=== PATIENT | female | born 1975 | race Caucasian/White ===

== ENCOUNTER → 2020-02-16 14:34 | Outpatient (BNVA) | payer OTHER, SELFPAY | PROVIDERS: Family Provider Family Medicine; PCP Family Medicine; Visit Provider Nurse Practitioner Family | DX: R05 Cough (principal); R09.81 Nasal congestion; R50.9 Fever, unspecified; R53.83 Other fatigue; R53.81 Other malaise; Z20.828 Contact with and (suspected) exposure to other viral communicable diseases | CPT/HCPCS: 87635 ==

== ENCOUNTER → 2021-07-27 16:49 | Outpatient (BNVA) | payer OTHER, SELFPAY | PROVIDERS: Family Provider Family Medicine; PCP Family Medicine; Visit Provider Nurse Practitioner Family | DX: Z20.828 Contact with and (suspected) exposure to other viral communicable diseases (principal); Z20.822 Contact with and (suspected) exposure to COVID-19 | CPT/HCPCS: 87635 ==

== ENCOUNTER 2022-12-10 10:21 | Emergency (ER) | payer MEDICAID, SELFPAY ==
[2022-12-10 10:57] VITALS: PULSE 137; RESP 16; TEMP 36.8; O2SAT 96; BMI 18.8
--- NOTE | 2022-12-10 13:13 | ED_ITS ---
Documented by User: KATHY Calhoun 12/10/22 16:19 HPI - Neck Pain/Injury General: Chief Complaint: Neck Pain/Injury Stated Complaint: NECK & BACK PAIN Time Seen by Provider: 12/10/22 12:47 Source: patient Mode of arrival: EMS Limitations: no limitations History of Present Illness: Patient is a 47-year-old female presents to ED today with a complaint of neck pain and bilateral shoulder pain. Patient provides history that at some point approximately a week ago she was outside feeding her dogs and states she got multiple thorns stuck in her neck. These were removed by herself and with tweezers. She states the following morning she began having neck pain. She is reporting diffuse neck pain and feels like the right side of her neck is swollen. Pain seems to be worse with any form of palpation and movement of her neck. She has not noticed any fevers. Reports previous IV drug use with last use being 10 years ago. MD complaint: neck pain Onset (ago): day(s) Place: home Radiation: right lateral, right shoulder and left shoulder Severity: severe and constant Severity scale (1-10): 10 Duration: constant Relieving factors: none Exacerbating factors: movement of extremity and movement of neck Associated symptoms: Reports no associated symptoms; Denies headache(s) or nausea Treatments prior to arrival: none Review of Systems Const: Denies: fever(s), chills, body aches, fatigue or malaise ENMT: Denies: throat pain, odynophagia or hoarseness Card: Denies: chest pain Resp: Denies: dyspnea GI: Denies: nausea or vomiting Musc: Reports: neck pain and joint pain (bilateral shoulder pain); Denies: back pain, extremity pain, extremity swelling, joint swelling, joint redness or joint warmth Neuro: Reports: sensory changes (bilateral UEs); Denies: headache(s) or weakness in extremities Physical Exam Const: COMMON NORMALS: patient oriented x3, no limitations, alert and well nourished GENERAL APPEARANCE: cooperative, in distress (in pain/discomfort) and disheveled ORIENTATION/CONSCIOUSNESS: Yes awake, Yes oriented to person, Yes oriented to place and Yes oriented to time Neck/C-Spine: GENERAL: Yes tender and Yes other (significant R posterior neck swelling) CERVICAL SPINE: Yes pain with cervical ROM NECK IMAGES: 1. diffuse swelling/edema to R posterior neck without underlying fluctuance to suggest abscess; denies midline tenderness; virtually no ROM of neck secondary to pain Resp: COMMON NORMALS: normal respiratory effort and clear to auscultation bilaterally AUSCULTATION: clear to auscultation bilaterally Cardio: COMMON NORMALS: regular rhythm RATE: tachycardic RHYTHM: regular rhythm Back/Pelvis: COMMON NORMALS: thoracic and lumbar spine normal to inspection, no thoracic nor lumbar tenderness and thoraco-lumbar ROM normal Extremity: COMMON NORMALS: normal to inspection, full ROM, capillary refill normal, no joint enlargement and no clubbing, cyanosis or edema NARRATIVE EXTREMITY EXAM: pain in neck with ROM of shoulders GENERAL: Yes normal exam except as noted Neuro: COMMON NORMALS: patient oriented x3 SENSORIUM/ORIENTATION: Yes alert, Yes oriented to person, Yes oriented to place and Yes oriented to time Course Consultations: Consultation #1: AMEENA Ham with Dr. Lacy admitting hospitalist at [facility] will be accepting patient as direct transfer Vital Signs: Vital signs: Vital Signs Temperature 98.2 F 12/10/22 10:57 Pulse Rate 137 H 12/10/22 10:57 Respiratory Rate 16 12/10/22 10:57 Pulse Oximetry 96 12/10/22 10:57 Oxygen Delivery Me thod Room Air 12/10/22 10:57 MDM - Neck Pain/Injury Medical Decision Making Patient has a very large multiseptated abscess involving the right posterior cervical space with extension into her cervical epidural spaces from C4-C7. Patient is tachycardic upon arrival. White count of 12.8. ESR is 103 with a CRP of 198. I have spoken to hospitalist at [facility] who will accept patient as a direct transfer. Will consult with neurosurgery/infectious disease upon arrival. Spoke to Dr. Mace who is aware of patient and agrees with transfer plan. Lab Data 12/10/22 13:30 12/10/22 13:[address] 12/10/22 13:19 IMPRESSION: 1. Lobulated large peripherally enhancing abscess in the posterior cervical space centered in the RIGHT paraspinal musculature about the right-sided facets at C3-C6. 2. Associated extension into the epidural space eccentric to the RIGHT and posteriorly with moderate central canal stenosis at C5 and C6. 3. Associated diffuse epidural enhancement with involvement of the RIGHT greater than LEFT neural foramen. 4. Disc space narrowing worse at C6-C7. No definite evidence of discitis. 5. No evidence of mediastinal abscess. Small amount of fluid and edema in the prevertebral space. Notified KATHY Calhoun at 12/10/2022 3:28 PM. Laboratory Results WBC 12.8 10^3/uL (4.0-10.0) H 12/10/22 13:30 RBC 4.22 10^6/uL (4.1-5.3) 12/10/22 13:30 Hgb 12.8 g/dL (11.5-15.3) 12/10/22 13:30 Hct 38.7 % (37.0-47.0) 12/10/22 13:30 MCV 91.7 fl (81-99) 12/10/22 13:30 MCH 30.3 pg (28.0-34.0) 12/10/22 13:30 MCHC 33.1 g/dL (30.0-36.0) 12/10/22 13:30 RDW 14.0 % (12.1-15.1) 12/10/22 13:30 Plt Count 265 10^3/cmm (130-400) 12/10/22 13:30 MPV 9.3 fL (7.4-10.4) 12/10/22 13:30 Neut % (Auto) 74.1 % 12/10/22 13:30 Lymph % (Auto) 14.3 % 12/10/22 13:30 Haralson % (Auto) 9.2 % 12/10/22 13:30 Eos % (Auto) 0.2 % 12/10/22 13:30 Baso % (Auto) 0.5 % 12/10/22 13:30 Neut # (Auto) 9.47 10^3/uL (1.8-7.7) H 12/10/22 13:30 Lymph # (Auto) 1.8 10^3/uL (0.8-4.8) 12/10/22 13:30 Haralson # (Auto) 1.2 10^3/uL (0.2-0.9) H 12/10/22 13:30 Eos # (Auto) 0.0 10^3/uL (0.0-0.8) 12/10/22 13:30 Baso # (Auto) 0.1 10^3/uL (0.0-0.1) 12/10/22 13:30 Nucleated RBC % (auto) 0 % 12/10/22 13:30 Nucleated RBCs # 0.0 /100WBC 12/10/22 13:30 ESR 103 mm/hr (0-15) H 12/10/22 13:30 Sodium 134 mmol/L (136-145) L 12/10/22 13:30 Potassium 3.7 mmol/L (3.5-5.1) 12/10/22 13:30 Chloride 98 mmol/L (98-107) 12/10/22 13:30 Carbon Dioxide 24 mmol/L (22-29) 12/10/22 13:30 Anion Gap 15.7 (5-19) 12/10/22 13:30 BUN 14 mg/dL (6-20) 12/10/22 13:30 Creatinine 0.9 mg/dL (0.5-0.9) 12/10/22 13:30 GFR Calculation 67.7 mL/min (90-130) L 12/10/22 13:30 Glucose 94 mg/dL (65-115) 12/10/22 13:30 Calculated Osmolality 278 mOsm/kg (285-295) L 12/10/22 13:30 Lactic Acid 1.2 mmol/L (0.5-2.2) 12/10/22 13:30 Calcium 8.6 mg/dL (8.5-10.5) 12/10/22 13:30 Total Bilirubin 0.5 mg/dL (0.15-1.2) 12/10/22 13:30 AST 46 U/L (0-32) H 12/10/22 13:30 ALT 108 U/L (0-33) H 12/10/22 13:30 Alkaline Phosphatase 501 U/L (35-105) H 12/10/22 13:30 C-Reactive Protein 196.6 mg/L (0.0-4.9) H 12/10/22 13:30 Total Protein 7.0 g/dL (6.6-8.7) 12/10/22 13:30 Albumin 3.1 g/dL (3.5-5.2) L 12/10/22 13:30 Globulin 3.9 g/dL (1.3-4.6) 12/10/22 13:30 Hepatitis A IgM Ab Non-reactive (Nonreactive) 12/10/22 13:30 Hep Bs Antigen Non-reactive (Nonreactive) 12/10/22 13:30 Hep B Core IgM Ab Non-reactive (Nonreactive) 12/10/22 13:30 Hepatitis C Antibody Non-reactive (Nonreactive) 12/10/22 13:30 Discharge Plan Discharge Patient Disposition: Xfer Short-Term Hosp Clinical Impression: Abscess in epidural space of cervical spine, Abscess of neck Condition: Stable Referrals: Gage Burt DO [Primary Care Provider] - Coding Level of Care Code ED Station Mechanic Helper for Chg Fwd Documented by User: Fredo Mace DO 12/10/22 16:35 HPI - Neck Pain/Injury General: Chief Complaint: Neck Pain/Injury Stated Complaint: NECK & BACK PAIN Time Seen by Provider: 12/10/22 12:47 Physical Exam Neck/C-Spine: NECK IMAGES: 1. diffuse swelling/edema to R posterior neck without underlying fluctuance to suggest abscess; denies midline tenderness; virtually no ROM of neck secondary to pain Course Vital Signs: Vital signs: Vital Signs Temperature 98.2 F 12/10/22 10:57 Pulse Rate 137 H 12/10/22 10:57 Respiratory Rate 16 12/10/22 10:57 Pulse Oximetry 96 12/10/22 10:57 Oxygen Delivery Me thod Room Air 12/10/22 10:57 MDM - Neck Pain/Injury Medical Decision Making Patient has a very large multiseptated abscess involving the right posterior ce rvical space with extension into her cervical epidural spaces from C4-C7. Patient is tachycardic upon arrival. White count of 12.8. ESR is 103 with a CRP of 198. I have spoken to hospitalist at [facility] who will accept patient as a direct transfer. Will consult with neurosurgery/infectious disease upon arrival. Spoke to Dr. Mace who is aware of patient and agrees with transfer plan. Chart reviewed and patient discussed with midlevel. Agree with assessment and plan. Lab Data 12/10/22 13:30 12/10/22 13:[address] 12/10/22 13:19 IMPRESSION: 1. Lobulated large peripherally enhancing abscess in the posterior cervical space centered in the RIGHT paraspinal musculature about the right-sided facets at C3-C6. 2. Associated extension into the epidural space eccentric to the RIGHT and posteriorly with moderate central canal stenosis at C5 and C6. 3. Associated diffuse epidural enhancement with involvement of the RIGHT greater than LEFT neural foramen. 4. Disc space narrowing worse at C6-C7. No definite evidence of discitis. 5. No evidence of mediastinal abscess. Small amount of fluid and edema in the prevertebral space. Notified KATHY Calhoun at 12/10/2022 3:28 PM. Laboratory Results WBC 12.8 10^3/uL (4.0-10.0) H 12/10/22 13:30 RBC 4.22 10^6/uL (4.1-5.3) 12/10/22 13:30 Hgb 12.8 g/dL (11.5-15.3) 12/10/22 13:30 Hct 38.7 % (37.0-47.0) 12/10/22 13:30 MCV 91.7 fl (81-99) 12/10/22 13:30 MCH 30.3 pg (28.0-34.0) 12/10/22 13:30 MCHC 33.1 g/dL (30.0-36.0) 12/10/22 13:30 RDW 14.0 % (12.1-15.1) 12/10/22 13:30 Plt Count 265 10^3/cmm (130-400) 12/10/22 13:30 MPV 9.3 fL (7.4-10.4) 12/10/22 13:30 Neut % (Auto) 74.1 % 12/10/22 13:30 Lymph % (Auto) 14.3 % 12/10/22 13:30 Haralson % (Auto) 9.2 % 12/10/22 13:30 Eos % (Auto) 0.2 % 12/10/22 13:30 Baso % (Auto) 0.5 % 12/10/22 13:30 Neut # (Auto) 9.47 10^3/uL (1.8-7.7) H 12/10/22 13:30 Lymph # (Auto) 1.8 10^3/uL (0.8-4.8) 12/10/22 13:30 Haralson # (Auto) 1.2 10^3/uL (0.2-0.9) H 12/10/22 13:30 Eos # (Auto) 0.0 10^3/uL (0.0-0.8) 12/10/22 13:30 Baso # (Auto) 0.1 10^3/uL (0.0-0.1) 12/10/22 13:30 Nucleated RBC % (auto) 0 % 12/10/22 13:30 Nucleated RBCs # 0.0 /100WBC 12/10/22 13:30 ESR 103 mm/hr (0-15) H 12/10/22 13:30 Sodium 134 mmol/L (136-145) L 12/10/22 13:30 Potassium 3.7 mmol/L (3.5-5.1) 12/10/22 13:30 Chloride 98 mmol/L (98-107) 12/10/22 13:30 Carbon Dioxide 24 mmol/L (22-29) 12/10/22 13:30 Anion Gap 15.7 (5-19) 12/10/22 13:30 BUN 14 mg/dL (6-20) 12/10/22 13:30 Creatinine 0.9 mg/dL (0.5-0.9) 12/10/22 13:30 GFR Calculation 67.7 mL/min (90-130) L 12/10/22 13:30 Glucose 94 mg/dL (65-115) 12/10/22 13:30 Calculated Osmolality 278 mOsm/kg (285-295) L 12/10/22 13:30 Lactic Acid 1.2 mmol/L (0.5-2.2) 12/10/22 13:30 Calcium 8.6 mg/dL (8.5-10.5) 12/10/22 13:30 Total Bilirubin 0.5 mg/dL (0.15-1.2) 12/10/22 13:30 AST 46 U/L (0-32) H 12/10/22 13:30 ALT 108 U/L (0-33) H 12/10/22 13:30 Alkaline Phosphatase 501 U/L (35-105) H 12/10/22 13:30 C-Reactive Protein 196.6 mg/L (0.0-4.9) H 12/10/22 13:30 Total Protein 7.0 g/dL (6.6-8.7) 12/10/22 13:30 Albumin 3.1 g/dL (3.5-5.2) L 12/10/22 13:30 Globulin 3.9 g/dL (1.3-4.6) 12/10/22 13:30 Hepatitis A IgM Ab Non-reactive (Nonreactive) 12/10/22 13:30 Hep Bs Antigen Non-reactive (Nonreactive) 12/10/22 13:30 Hep B Core IgM Ab Non-reactive (Nonreactive) 12/10/22 13:30 Hepatitis C Antibody Non-reactive (Nonreactive) 12/10/22 13:30 Discharge Plan Discharge Patient Disposition: Xfer Short-Term Hosp Clinical Impression: Abscess in epidural space of cervical spine, Abscess of neck Condition: Stable Referrals: Gage Burt DO [Primary Care Provider] - Coding Level of Care Code ED Station Mechanic Helper for Windy Armas
--- NOTE | 2022-12-10 13:19 | CT_ITS ---
WS: [id number] CT NECK TECHNIQUE: Contrast-enhanced CT of the neck with coronal and sagittal reformatted images. CLINICAL INFORMATION: severe neck pain; R posterior neck pain/swelling COMPARISON: None. DLP: 148.[address] scans at [facility] [place] use at least one of these dose optimization techniques: automated e xposure control; mA and/or kV adjustment per patient size (includes targeted exams where dose is matc hed to clinical indication); or iterative reconstruction. FINDINGS: Large lobulated multiseptated peripherally enhancing abscess involving the RIGHT posterior cervical space. This involves the paraspinal musculature extending into the cervical epidural space extending from C4 through C7. Epidural abscess worse at the C5 and C6 levels with moderate central canal stenos is with anterior LEFT flattening of the cervical cord. Epidural abscess eccentric to the RIGHT extend ing posteriorly with diffuse epidural enhancement. Abscess extends inferiorly to approximately T1 lev el. Irregular lobulated paravertebral abscess measures approximately 3.9 x 5.8 x 7.1 cm AP by transverse by craniocaudal. Paravertebral abscess extends into the interspinous musculature posteriorly and into the epidural space described above. Extension into the RIGHT neural foramen at C4-C7. Prevertebral soft tissue edema. Trace fluid in the prevertebral s pace. No evidence of mediastinal abscess. Inflammatory changes extend into the RIGHT lower neck and s upraclavicular soft tissues Thyroid gland appears normal. Lung apices are well aerated. Mastoid air cells are well aerated. Fernanda l posterior nasopharynx. Normal parapharyngeal fat. Disc space narrowing worse at C6-C7 with reversal of the normal cervical lordosis. Asymmetric advance d facet arthropathy C4-C6. No definite evidence of discitis. This can be further evaluated with MRI. Paravertebral abscess centered about the RIGHT C3-C6 facets. CT/CT neck w con* [id number] IMPRESSION: 1. Lobulated large peripherally enhancing abscess in the posterior cervical sp elma centered in the RIGHT paraspinal musculature about the right-sided facets a t C3-C6. 2. Associated extension into the epidural space eccentric to the RIGHT and pos teriorly with moderate central canal stenosis at C5 and C6. 3. Associated diffuse epidural enhancement with involvement of the RIGHT great er than LEFT neural foramen. 4. Disc space narrowing worse at C6-C7. No definite evidence of discitis. 5. No evidence of mediastinal abscess. Small amount of fluid and edema in the prevertebral space. Notified KATHY Calhoun at 12/10/2022 3:28 PM.
[2022-12-10 13:47] LABS: Basophils # 0.1 10^3/uL (0.0-0.1); Basophils % 0.5 %; Eosinophils % 0.2 %; Hematocrit 38.7 % (37.0-47.0); Hemoglobin 12.8 g/dL (11.5-15.3); Lymphocytes # 1.8 10^3/uL (0.8-4.8); Lymphocytes % 14.3 %; Mean Corpuscular HGB Conc 33.1 g/dL (30.0-36.0); Mean Corpuscular Hemoglobin 30.3 pg (28.0-34.0); Mean Corpuscular Volume 91.7 fl (81-99); Mean Platelet Volume 9.3 fL (7.4-10.4); Monocytes # 1.2 10^3/uL (0.2-0.9); Monocytes % 9.2 %; Neutrophils # 9.47 10^3/uL (1.8-7.7); Neutrophils % 74.1 %; Nucleated Red Blood Cells % 0 %; Platelet Count 265 10^3/cmm (130-400); Red Blood Count 4.22 10^6/uL (4.1-5.3); White Blood Count 12.8 10^3/uL (4.0-10.0)
[2022-12-10 14:02] LABS: Erythrocyte Sedimentation Rate 103 mm/hr (0-15)
[2022-12-10 14:06] LABS: Alanine Aminotransferase 108 U/L (0-33); Albumin Level 3.1 g/dL (3.5-5.2); Alkaline Phosphatase 501 U/L (35-105); Anion Gap 15.7 (5-19); Aspartate Amino Transferase 46 U/L (0-32); Blood Urea Nitrogen 14 mg/dL (6-20); C Reactive Protein 196.6 mg/L (0.0-4.9); Calcium 8.6 mg/dL (8.5-10.5); Carbon Dioxide 24 mmol/L (22-29); Chloride 98 mmol/L (98-107); Globulin 3.9 g/dL (1.3-4.6); Glomerular Filtration Rate 67.7 mL/min (90-130); Glucose 94 mg/dL (65-115); Osmolality Calculated 278 mOsm/kg (285-295); Potassium 3.7 mmol/L (3.5-5.1); Sodium 134 mmol/L (136-145); Total Bilirubin 0.5 mg/dL (0.15-1.2)
[2022-12-10 14:19] LABS: Lactic Sepsis W/Reflex 1.2 mmol/L (0.5-2.2)
[2022-12-10] MEDS: morphine 4 mg/mL SDV 1 mL IVP (14:42)
[2022-12-10 14:59] LABS: Hepatitis A Antibody IgM Non-Reactive (Nonreactive); Hepatitis B Core IgM Non-Reactive (Nonreactive); Hepatitis B Surface Antigen Non-Reactive (Nonreactive); Hepatitis C Virus Antibody Non-Reactive (Nonreactive)
[2022-12-10] MEDS: iohexol 350 mg/mL 500 mL Btl (per mL) IV (15:01)
[2022-12-10] MEDS: sodium chloride 0.9% 1,000 ML 999 ML IV (16:42)
[2022-12-10] MEDS: cefTRIAXone 2,000 MG in sodium chloride 0.9% (plus) 50 ML 100 MG IV (16:42)
[2022-12-10] MEDS: vancomycin 1,000 MG in sodium chloride 0.9% 250 ML 250 MG IV (17:42)
[2022-12-10 18:15] VITALS: BP 131/79; PULSE 120; O2SAT 99
[2022-12-10 18:53] LABS: Amphetamines Screen Urine Positive (Negative); Barbiturates Screen Urine Negative (Negative); Benzodiazepines Screen Urine Negative (Negative); Cocaine Screen Urine Negative (Negative); Opiate Screen Urine Positive (Negative); PCP Screen Urine Negative (Negative); THC Screen Urine Positive (Negative)
--- NOTE | 2022-12-10 18:57 | PC.NURSE ---
ASSUMED CARE AROUND [id number].
[2022-12-10 19:08] VITALS: RESP 16; O2SAT 100
[2022-12-10] MEDS: HYDROmorphone 1 mg/mL INJ 1 mL IVP (19:08)
[2022-12-10 19:12] VITALS: BP 131/79; PULSE 116; RESP 18; O2SAT 96
[2022-12-10 23:56] VITALS: BP 120/73; PULSE 121; RESP 16; O2SAT 95
[2022-12-11] VITALS (11 sets, daily range): BP systolic 97–125; BP diastolic 64–86; PULSE 101–129; RESP 14–18; O2SAT 94–100
[2022-12-11] MEDS: HYDROmorphone 1 mg/mL INJ 1 mL IVP ×2 (04:03→07:37)
--- NOTE | 2022-12-11 06:53 | PC.NURSE ---
Received report from Hermann MENENDEZ. Assuming care for patient at this time.
[2022-12-11] MEDS: sodium chloride 0.9% 1,000 ML 999 ML IV (07:38)
[2022-12-11] MEDS: nicotine 21 mg Patch 1 PATCH TRANSDERMA (07:50)
[2022-12-11 07:59] LABS: Basophils # 0.1 10^3/uL (0.0-0.1); Basophils % 0.5 %; Eosinophils # 0.1 10^3/uL (0.0-0.8); Eosinophils % 0.5 %; Hematocrit 35.3 % (37.0-47.0); Hemoglobin 11.3 g/dL (11.5-15.3); Lymphocytes # 2.3 10^3/uL (0.8-4.8); Lymphocytes % 14.6 %; Mean Corpuscular Volume 93.6 fl (81-99); Mean Platelet Volume 9.1 fL (7.4-10.4); Monocytes # 1.4 10^3/uL (0.2-0.9); Neutrophils # 11.27 10^3/uL (1.8-7.7); Neutrophils % 73.5 %; Nucleated Red Blood Cells % 0 %; Platelet Count 263 10^3/cmm (130-400); Red Blood Count 3.77 10^6/uL (4.1-5.3); Red Cell Distribution Width 14.2 % (12.1-15.1); White Blood Count 15.4 10^3/uL (4.0-10.0)
[2022-12-11 08:08] LABS: Bacillus cereus group Not Detected (NOT DETECT); Bacillus subtillis group Not Detected (NOT DETECT); Corynebacterium Not Detected (NOT DETECT); Cutibacterium acnes (P.acnes) Not Detected (NOT DETECT); Enterococcus Not Detected (NOT DETECT); Enterococcus faecalis Not Detected (NOT DETECT); Enterococcus faecium Not Detected (NOT DETECT); Lactobacillus species Not Detected (NOT DETECT); Listeria Not Detected (NOT DETECT); Listeria monocytogenes Not Detected (NOT DETECT); Micrococcus Not Detected (NOT DETECT); Pan Candida Not Detected (NOT DETECT); Pan Gram-Negative Not Detected (NOT DETECT); Staphylococcus epidermidis Not Detected (NOT DETECT); Staphylococcus lugdunensis Not Detected (NOT DETECT); Staphylococcus species Detected (NOT DETECT); Streptococcus agalactiae Not Detected (NOT DETECT); Streptococcus anginosus group Not Detected (NOT DETECT); Streptococcus pneumoniae Not Detected (NOT DETECT); Streptococcus pyogenes Not Detected (NOT DETECT); Streptococcus species Not Detected (NOT DETECT); mecA Detected (NOT DETECT); mecC Not Detected (NOT DETECT)
[2022-12-11 08:26] LABS: Alanine Aminotransferase 66 U/L (0-33); Albumin Level 2.4 g/dL (3.5-5.2); Alkaline Phosphatase 602 U/L (35-105); Anion Gap 15.7 (5-19); Aspartate Amino Transferase 23 U/L (0-32); Blood Urea Nitrogen 10 mg/dL (6-20); Calcium 8.1 mg/dL (8.5-10.5); Carbon Dioxide 22 mmol/L (22-29); Chloride 100 mmol/L (98-107); Globulin 3.5 g/dL (1.3-4.6); Glomerular Filtration Rate 90.5 mL/min (90-130); Glucose 82 mg/dL (65-115); Osmolality Calculated 276 mOsm/kg (285-295); Potassium 3.7 mmol/L (3.5-5.1); Sodium 134 mmol/L (136-145); Total Bilirubin 0.5 mg/dL (0.15-1.2); Total Protein 5.9 g/dL (6.6-8.7)
[2022-12-11 08:32] LABS: Lactic Sepsis W/Reflex 0.9 mmol/L (0.5-2.2)
== END 2022-12-11 09:53 | disposition short-term general hospital (02) ==
PROVIDERS: Emergency Provider Physician Assistant; PCP Family Medicine
DX: G06.1 Intraspinal abscess and granuloma (principal); L02.11 Cutaneous abscess of neck
CPT/HCPCS: 36415; 70491; 80053; 80074; 80306; 83605; 85025; 85651; 86140; 87040; 87077; 87150; 87186; 87205; 96365; 96366; 96367; 96375; 96376; 99285; J0696; J1170; J2270; J3370; J7030; J7050; Q9967

== ENCOUNTER → 2023-01-30 16:19 | Outpatient (BNVA) | payer OTHER, MEDICAID, SELFPAY | PROVIDERS: PCP Family Medicine; Visit Provider Family Medicine | DX: R74.01 Elevation of levels of liver transaminase levels (principal) | CPT/HCPCS: 80053 ==

== ENCOUNTER 2023-08-27 11:18 | Outpatient (CLI) | payer OTHER, SELFPAY ==
--- NOTE | 2023-08-27 11:23 | XR_ITS ---
WS: [id number] SHOULDER RIGHT TECHNIQUE: 3 views of the right shoulder CLINICAL INFORMATION: JOINT PAIN COMPARISON: None. FINDINGS: Normal acromioclavicular joint. Mild downsloping acromion. High riding humeral head with narrowing of the subacromial space. Normal glenohumeral joint. Acromion is normal in appearance. Normal glenoid. No evidence of acute fracture dislocation. IMPRESSION: 1. Normal AC joint with mild downsloping the acromion. 2. High riding humeral head with narrowing of the subacromial space.. Recommend correlation for rota tor cuff arthropathy.
--- NOTE | 2023-08-27 11:23 | XR_ITS ---
WS: [id number] LUMBAR SPINE TECHNIQUE: 3 views of the lumbar spine CLINICAL INFORMATION: JOINT PAIN COMPARISON: None. FINDINGS: Five [id number] lumbar vertebral bodies. Mild lumbar curve convex LEFT. Disc space heights are w ell preserved. Mild facet arthropathy lower lumbar spine. No compression fractures. No visualized par s defects. No spondylolisthesis. Visualized sacroiliac joints are normal. Normal visualized soft tiss ues. Partially visualized bowel gas pattern is normal. IMPRESSION: 1. Mild lumbar curve. No acute compression fractures. 2. Disc heights are relatively well-preserved. Mild disc space narrowing L4-L5 and L5-S1. 3. Mild facet arthropathy L4-L5 and L5-S1.
== END 2023-08-27 11:19 | disposition home or self-care (01) ==
LOC: RAD 11:19
PROVIDERS: PCP Family Medicine; Visit Provider Dermatology
DX: Z02.71 Encounter for disability determination (principal); M25.511 Pain in right shoulder; M47.817 Spondylosis without myelopathy or radiculopathy, lumbosacral region
CPT/HCPCS: 72100; 73030

== ENCOUNTER 2024-06-12 09:20 | Emergency (ER) | payer MEDICAID, SELFPAY ==
--- NOTE | 2024-06-12 09:25 | CT_ITS ---
WS: [id number] CT HEAD TECHNIQUE: Noncontrast CT of the head obtained from the skullbase to the vertex. CLINICAL INFORMATION: Symptoms of acute stroke COMPARISON: None. DLP: All CT scans at [facility] use at least one of these dose optimization techniques: automated e xposure control; mA and/or kV adjustment per patient size (includes targeted exams where dose is matc hed to clinical indication); or iterative reconstruction. FINDINGS: No evidence of intracranial hemorrhage or mass effect. Ventricular system and basal cisterns are viramontes nt. No extra-axial fluid collections. No evidence of mass or mass effect. Normal campbell-white different iation. Paranasal sinuses and mastoid air cells are well aerated. .Normal visualized soft tissues. CT/CT head thrombolytic [id number] IMPRESSION: 1. No evidence of intracranial hemorrhage or mass effect. 2. No acute intracranial findings. Notified Fredo Mace DO at 06/12/2024 9:42 AM.
[2024-06-12 09:31] VITALS: BP 127/95; PULSE 86; RESP 18; TEMP 36.8; O2SAT 100; BMI 19.7
--- NOTE | 2024-06-12 09:35 | ED_ITS ---
HPI - Neuro Symptoms/Deficit 2 General: Chief Complaint: Neuro Symptoms/Deficit Stated Complaint: stroke alert Time Seen by Provider: 06/12/24 09:25 History of Present Illness: 49-year-old female presents to the [facility] ency room as a stroke alert. She reports that around 730 she began to have weakness and just her right leg. She also has a corresponding headache. She also reported some decrease sensation on the right compared to the left on scratch test on her face and her foot. Associated symptoms: Reports headache(s); Deny chest pain Related Data Home Medications Medication Instructions Recorded Confirmed docusate sodium 100 mg capsule 100 mg PO DAILY 01/30/23 01/30/23 doxycycline hyclate 100 mg capsule 100 mg PO BID 01/30/23 01/30/23 hydromorphone 2 mg tablet 1 mg PO Q8H PRN pain 01/30/23 01/30/23 Previous Rx's Medication Instructions Recorded nortriptyline 50 mg capsule 50 mg PO DAILY #30 caps 01/30/23 gabapentin 600 mg tablet 600 mg PO TID #90 tabs 02/27/23 tizanidine 4 mg tablet See Rx Instructions .Route 01/06/24 .COMPLEX #30 tabs diclofenac sodium 75 mg 75 mg PO Q12H PRN pain #20 tabs 06/12/24 tablet,delayed release promethazine 25 mg tablet 25 mg PO Q6H PRN headache #20 tabs 06/12/24 Allergies Allergy/AdvReac Type Severity Reaction Status Date / Time eletriptan [From Relpax] Allergy Severe ALGY-Anaphy Verified 01/30/23 10:39 laxis disopyramide [From Norpace] Allergy ALGY-Anaphy Verified 01/30/23 10:39 laxis Review of Systems 2 Const: Denies: fever(s) or chills Card: Denies: chest pain Resp: Denies: dyspnea GI: Denies: abdominal pain : Denies: dysuria, urinary frequency or urinary urgency Musc: Denies: neck pain or back pain Skin/Breast: Denies: rash Neuro: Reports: headache(s) PFSH ED 2 PFSH: Social History Smoking and tobacco/nicotine status: current every day tobacco/nicotine user cigarettes Alcohol intake: never Substance/Drug Use: current Substance/Drug use frequency: few times a week NIH stroke score 2 NIHSS: Level Of Consciousness - 1a: 0 Level Of Consciousness Questions - 1b: Both Correct Level Of Consciousness Commands - 1c: Both Correct Best Gaze - 2: Normal Visual Egan - 3: No Visual Loss Facial Palsy - 4: N ormal Motor Arm Right - 5: No Drift Motor Arm Left - 5: No Drift Motor Leg Right - 6: Drift Motor Leg Left - 6: No Drift Limb Ataxia - 7: Absent Sensory - 8: Mild To Moderate Loss Best Language - 9: No Aphasia D ysarthia - 10: Normal Extinction And Inattention - 11: 0 Score: Total Score: 2 Physical Exam 2 Const: COMMON NORMALS: no acute distress GENERAL APPEARANCE: cooperative and comfortable ORIENTATION/CONSCIOUSNESS: Yes awake, Yes oriented to person, Yes oriented to place and Yes oriented to time HENMT: COMMON NORMALS: normocephalic, atraumatic and hearing grossly normal bilaterally HEAD & SCALP: normocephalic and atraumatic Resp: COMMON NORMALS: normal respiratory effort, No retractions, No use of accessory muscles and clear to auscultation bilaterally AUSCULTATION: clear to auscultation bilaterally Cardio: COMMON NORMALS: regular rate, regular rhythm and No murmurs present (Cardio) RATE: regular rate RHYTHM: regular rhythm GI: COMMON NORMALS: Soft to palpation and No hepatosplenomegaly present A USCULTATION: Yes normoactive bowel sounds PALPATION: Yes Soft to palpation, No Tenderness to palpation present (GI), No Guarding due to palpation present (GI) and Yes No hepatosplenomegaly present Extremity: COMMON NORMALS: normal to inspection, capillary refill normal, no clubbing, cyanosis or edema, no calf tenderness and no pedal edema Neuro: SENSORIUM/ORIENTATION: Yes oriented to person, Yes oriented to place and Yes oriented to time Skin: COMMON NORMALS: no rashes or lesions noted GENERAL SKIN EXAM: no rashes or lesions noted Course 2 Vital Signs: Vital signs: Vital Signs Temperature 98.2 F 06/12/24 09:31 Pulse Rate 78 06/12/24 12:53 Respiratory Rate 18 06/12/24 09:31 Blood Pressure 107/68 06/12/24 12:53 Pulse Oximetry 95 06/12/24 12:53 Oxygen Delivery Me thod Room Air 06/12/24 11:41 MDM - Neuro Symptoms/Deficit Medical Decision Making Patient came as a stroke alert was seen by myself and by Dr. Dennison balloon sander. Both score is a 2 think this is more of a hemiplegic migraine symptoms did improve after migraine is treated she has a history of methamphetamine use last used 2 days ago which I think also may play a role in this. No leukocytosis. She was complaining of neck pain some as well she previously had a epidural abscess in the cervical region had a large decompressive laminectomy about a year ago. She has significant kyphosis and there is some flattening of the spinal cord although there is no direct impingement reviewed with Dr. Montes with Dr. Lo. Neither felt that this is emergent at this time but should have outpatient follow-up will refer her to Dr. Lo for further evaluation. Discharge home can use Phenergan diclofenac for headache. Abstain from methamphetamine use Medical Records I reviewed the patient's medical records. Lab Data I reviewed the patient's lab results. 06/12/24 09:46 06/12/24 09:[address] 06/12/24 09:25 IMPRESSION: 1. No evidence of intracranial hemorrhage or mass effect. 2. No acute intracranial findings. Notified Fredo Mace DO at 06/12/2024 9:42 AM. Head/Neck CTA 06/12/24 09:42 IMPRESSION: 1. No significant cervical ICA stenosis. Both ICAs are patent to the skull base. 2. Codominant and patent vertebral arteries bilaterally. Basilar artery is patent. 3. No flow-limiting intracranial stenosis. 4. Progressive cervical kyphosis with anterior wedging at C6 with severe narrowing of the spinal canal at this level despite prior decompressive laminectomies. Flattening of the cervical cord due to kyphosis and retrolisthesis. Recommend follow-up spine surgery evaluation and MRI. Notified Fredo Mace DO at 06/12/2024 10:58 AM. Laboratory Results WBC 9.76 10^3/uL (3.29-11.43) 06/12/24 09:46 RBC 4.41 10^6/uL (3.85-5.65) 06/12/24 09:46 Hgb 13.80 g/dL (11.27-16.99) 06/12/24 09:46 Hct 42.7 % (36-47) 06/12/24 09:46 MCV 96.8 fl (85-98) 06/12/24 09:46 MCH 31.3 pg (27-33) 06/12/24 09:46 MCHC 32.3 g/dL (30-55) 06/12/24 09:46 RDW 12.5 % (12.1-15.1) 06/12/24 09:46 Plt Count 232 10^3/cmm (157-399) 06/12/24 09:46 MPV 9.8 fL (7.4-10.4) 06/12/24 09:46 Neut % (Auto) 72.6 % 06/12/24 09:46 Lymph % (Auto) 19.1 % 06/12/24 09:46 [place] % (Auto) 5.9 % 06/12/24 09:46 Eos % (Auto) 1.6 % 06/12/24 09:46 Baso % (Auto) 0.5 % 06/12/24 09:46 Neut # (Auto) 7.08 10^3/uL (1.8-7.7) 06/12/24 09:46 Lymph # (Auto) 1.9 10^3/uL (0.8-4.8) 06/12/24 09:46 [place] # (Auto) 0.6 10^3/uL (0.2-0.9) 06/12/24 09:46 Eos # (Auto) 0.2 10^3/uL (0.0-0.8) 06/12/24 09:46 Baso # (Auto) 0.1 10^3/uL (0.0-0.1) 06/12/24 09:46 Nucleated RBC % (auto) 0 % 06/12/24 09:46 Nucleated RBCs # 0.0 /100WBC 06/12/24 09:46 PT 12.90 SECONDS (12.1-14.9) 06/12/24 09:46 INR 0.95 (0.8-1.2) 06/12/24 09:46 APTT 29.5 SECONDS (23.9-36.7) 06/12/24 09:46 Sodium 136 mmol/L (136-145) 06/12/24 09:46 Potassium 5.1 mmol/L (3.5-5.1) 06/12/24 09:46 Chloride 103 mmol/L (98-107) 06/12/24 09:46 Carbon Dioxide 24 mmol/L (22-29) 06/12/24 09:46 Anion Gap 14.1 (5-19) 06/12/24 09:46 BUN 20 mg/dL (6-20) 06/12/24 09:46 Creatinine 0.9 mg/dL (0.5-0.9) 06/12/24 09:46 GFR Calculation 67.1 mL/min (90-130) L 06/12/24 09:46 Glucose 97 mg/dL (65-115) 06/12/24 09:46 POC Glucose 83 mg/dL (70-110) 06/12/24 09:43 Calculated Osmolality 285 mOsm/kg (285-295) 06/12/24 09:46 Calcium 9.0 mg/dL (8.5-10.5) 06/12/24 09:46 Total Bilirubin 0.2 mg/dL (0.15-1.2) 06/12/24 09:46 AST 16 U/L (0-32) 06/12/24 09:46 ALT 12 U/L (0-33) 06/12/24 09:46 Alkaline Phosphatase 71 U/L (35-105) 06/12/24 09:46 Total Protein 6.6 g/dL (6.6-8.7) 06/12/24 09:46 Albumin 4.2 g/dL (3.5-5.2) 06/12/24 09:46 Globulin 2.4 g/dL (1.3-4.6) 06/12/24 09:46 Urine Color Yellow (Yellow) 06/12/24 10:01 Urine Appearance Cloudy (CLEAR) A 06/12/24 10:01 Urine pH 6.5 (5-7) 06/12/24 10:01 Ur Specific [place] 1.009 (1.005-1.030) 06/12/24 10:01 Urine Protein Negative (Negative) 06/12/24 10:01 Urine Glucose (UA) Negative (Normal) 06/12/24 10:01 Urine Ketones Negative (Negative) 06/12/24 10:01 Urine Blood 2+ (Negative) A 06/12/24 10:01 Urine Nitrate Negative (Negative) 06/12/24 10:01 Urine Bilirubin Negative (Negative) 06/12/24 10:01 Urine Urobilinogen 0.2 mg/dL (Negative) 06/12/24 10:01 Ur Leukocyte Esterase 1+ (Negative) A 06/12/24 10:01 Urine RBC 0-2 /hpf (0-2) 06/12/24 10:01 Urine WBC 51-100 /hpf (0-5) H 06/12/24 10:01 Ur Squamous Epith Cells 0-5 /hpf (0-5) 06/12/24 10:01 Amorphous Sediment Not Reportable 06/12/24 10:01 Urine Bacteria 4+ /hpf (NONE) H 06/12/24 10:01 Hyaline Casts 0-4 /lpf H 06/12/24 10:01 Urine Opiates Screen Negative ng/mL (Negative) 06/12/24 10:01 Ur Barbiturates Screen Negative ng/mL (Negative) 06/12/24 10:01 Ur Phencyclidine Scrn Negative ng/mL (Negative) 06/12/24 10:01 Ur Amphetamines Screen Positive ng/mL (Negative) H 06/12/24 10:01 U Benzodiazepines Scrn Negative ng/mL (Negative) 06/12/24 10:01 Urine Cocaine Screen Negative ng/mL (Negative) 06/12/24 10:01 U Marijuana (THC) Screen Negative ng/mL (Negative) 06/12/24 10:01 All radiology interpretation(s) finalized by discharge Discharge Plan Discharge Patient Disposition: Home Clinical Impression: Hemiplegic migraine, Post laminectomy syndrome Condition: Stable Prescriptions: New diclofenac sodium 75 mg tablet,delayed release (DR/EC) 75 mg PO Q12H PRN (Reason: pain) Qty: 20 0RF promethazine 25 mg tablet 25 mg PO Q6H PRN (Reason: headache) Qty: 20 0RF Discontinued ibuprofen 800 mg tablet 800 mg PO Q8H No Action docusate sodium 100 mg capsule 100 mg PO DAILY doxycycline hyclate 100 mg capsule 100 mg PO BID hydromorphone 2 mg tablet 1 mg PO Q8H PRN (Reason: pain) nortriptyline 50 mg capsule 50 mg PO DAILY Qty: 30 0RF gabapentin 600 mg tablet 600 mg PO TID Qty: 90 11RF tizanidine 4 mg tablet See Rx Instructions .ROUTE .COMPLEX Qty: 30 2RF Dose Instruction: TAKE ONE TABLET BY MOUTH THREE TIMES DAILY NEEDED FOR MUSCLE SPASTICITY Rx Instructions: TAKE ONE TABLET BY MOUTH THREE TIMES DAILY NEEDED FOR MUSCLE SPASTICITY Discharge Orders: Discharge ED (Routine); Ordered 06/12/24 Ordered By: Fredo Mace Referrals: Gage Burt, [Primary Care Provider] - Discharge Diet: Usual diet Discharge Activity: Resume usual activity Patient Instructions: Opioid Safety, Pain Management Activity Restrictions/Additional Instructions: [facility]. It is very important that you follow up as instructed or that you return to the Emergency Department should you have concerns or if your condition changes or worsens in any way. You were seen in the emergency room for headache and weakness. The on-call neurologist and the emergency room doctor evaluated and not have signs of a stroke. Suspect that your migraine is caused by your neck problems. There is some flattening of your spinal cord this appears to be chronic. We reviewed this was orthopedic spine surgery they recommend that you follow-up with her office. We did give you medications you can use for headache relief as needed at home. Coding Level of Care Code ED Ribbon Cleaner for Windy Armas
--- NOTE | 2024-06-12 09:42 | ECG_ITS ---
[facility] Test Date: 2024-06-12 Pat Name: Nneka Gonzalez Department: Room: Gender: Female Med Surg Nurse: : 1975 Requested By: Fredo Quiñonez Order Number: [id number] [place] MD: Ai Brown M.D. Measurements Intervals [place] Rate: 79 P: 84 ND: 168 QRS: 74 QRSD: 95 T: 72 QT: 378 QTc: 435 Interpretive Statements SINUS RHYTHM WITH SINUS ARRHYTHMIA POSSIBLE RIGHT VENTRICULAR CONDUCTION DELAY [RSR (QR) IN V1/V2] No previous ECG available for comparison Electronically Signed On 06-12-2024 16:56:52 INDUSTRIAL ORGANIZATIONAL PSYCHOLOGIST by Ai Brown M.D. [email or web address]
--- NOTE | 2024-06-12 09:42 | CT_ITS ---
WS: [id number] CTA HEAD AND NECK TECHNIQUE: Contrast enhanced CTA of the head and neck with coronal and sagittal reformatted images an d maximum intensity projection (MIP) images. NASCET criteria utilized. CLINICAL INFORMATION: headache, migraine variant COMPARISON: None. DLP: 364.[address] scans at [facility] use at least one of these dose optimization techniques: automated e xposure control; mA and/or kV adjustment per patient size (includes targeted exams where dose is matc hed to clinical indication); or iterative reconstruction. FINDINGS: RIGHT: RIGHT common carotid artery is patent. No significant RIGHT ICA stenosis. RIGHT ICA is patent to the skull base. LEFT: LEFT common carotid artery is patent. No significant LEFT ICA stenosis. LEFT ICA is patent to t he skull base. Both vertebral arteries are patent. Basilar artery is patent. Normal vascularity to the [employer] territory bilaterally. Both ICAs are patent at the skull base. Small RIGHT A1 segment. Normal vascularity to the TAHIR and MCA territories bilaterally. No evidence of proximal flow-limiting stenosis. Lung apices are well aerated. Reversal of the normal cervical lordosis with wide decompressive anne ctomies in the cervical spine. Increased focal kyphosis at C6 with anterior wedging and chronic retro listhesis. Severe central canal narrowing at this level with flattening of the cervical cord. Laminec ellis has been performed at this level. Recommend follow-up MRI and spine surgery evaluation. CT/CT angio headneck* [id number] IMPRESSION: 1. No significant cervical ICA stenosis. Both ICAs are patent to the skull bas e. 2. Codominant and patent vertebral arteries bilaterally. Basilar artery is pat ent. 3. No flow-limiting intracranial stenosis. 4. Progressive cervical kyphosis with anterior wedging at C6 with severe narro wing of the spinal canal at this level despite prior decompressive laminectomie s. Flattening of the cervical cord due to kyphosis and retrolisthesis. Recommen d follow-up spine surgery evaluation and MRI. Notified Fredo Mace DO at 06/12/2024 10:58 AM.
[2024-06-12 09:51] LABS: Glucose Point of Care 83 mg/dL (70-110)
[2024-06-12 09:55] VITALS: BP 127/95; PULSE 74; O2SAT 98
[2024-06-12 09:55] LABS: Basophils # 0.1 10^3/uL (0.0-0.1); Basophils % 0.5 %; Eosinophils # 0.2 10^3/uL (0.0-0.8); Eosinophils % 1.6 %; Hematocrit 42.7 % (36-47); Lymphocytes # 1.9 10^3/uL (0.8-4.8); Lymphocytes % 19.1 %; Mean Corpuscular HGB Conc 32.3 g/dL (30-55); Mean Corpuscular Hemoglobin 31.3 pg (27-33); Mean Corpuscular Volume 96.8 fl (85-98); Mean Platelet Volume 9.8 fL (7.4-10.4); Monocytes # 0.6 10^3/uL (0.2-0.9); Monocytes % 5.9 %; Neutrophils # 7.08 10^3/uL (1.8-7.7); Neutrophils % 72.6 %; Nucleated Red Blood Cells % 0 %; Platelet Count 232 10^3/cmm (157-399); Red Blood Count 4.41 10^6/uL (3.85-5.65); Red Cell Distribution Width 12.5 % (12.1-15.1); White Blood Count 9.76 10^3/uL (3.29-11.43)
[2024-06-12 10:08] LABS: INR 0.95 (0.8-1.2); Partial Thromboplastin Time 29.5 SECONDS (23.9-36.7)
[2024-06-12 10:14] LABS: Alanine Aminotransferase 12 U/L (0-33); Albumin Level 4.2 g/dL (3.5-5.2); Alkaline Phosphatase 71 U/L (35-105); Anion Gap 14.1 (5-19); Aspartate Amino Transferase 16 U/L (0-32); Blood Urea Nitrogen 20 mg/dL (6-20); Carbon Dioxide 24 mmol/L (22-29); Chloride 103 mmol/L (98-107); Globulin 2.4 g/dL (1.3-4.6); Glomerular Filtration Rate 67.1 mL/min (90-130); Glucose 97 mg/dL (65-115); Osmolality Calculated 285 mOsm/kg (285-295); Potassium 5.1 mmol/L (3.5-5.1); Sodium 136 mmol/L (136-145); Total Bilirubin 0.2 mg/dL (0.15-1.2); Total Protein 6.6 g/dL (6.6-8.7)
[2024-06-12] MEDS: iohexol 350 mg/mL 500 mL Btl (per mL) IV (10:15)
[2024-06-12 10:21] LABS: Bilirubin Urine Negative (Negative); Blood Urine 2+ (Negative); Glucose Urine UA Negative (Normal); Ketones Urine Negative (Negative); Leukocyte Esterase Urine 1+ (Negative); Nitrate Urine Negative (Negative); Protein Urine Negative (Negative); Specific Gravity, Urine 1.009 (1.005-1.030); Urine Appearance Cloudy (CLEAR); Urine Color Yellow (Yellow); Urobilinogen Urine 0.2 mg/dL (Negative); pH Urine 6.5 (5-7)
[2024-06-12 10:25] VITALS: BP 112/71; PULSE 80; O2SAT 98
[2024-06-12] MEDS: valproic acid inj 500 MG in sodium chloride 0.9% 50 ML 55 MG IV (10:25)
[2024-06-12 10:26] LABS: Add Urine Microscopic? YES; Bacteria Urine 4+ /hpf; Hyaline Casts Urine 0-4 /lpf; RBC Urine 0-2 /hpf (0-2); Squamous Epithelial Cell Urine 0-5 /hpf (0-5); WBC Urine 51-100 /hpf (0-5)
--- NOTE | 2024-06-12 10:26 | P.CONIM_ITS ---
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 According to the patient, on 06/10/2024 she began experiencing the worst headache of her life described as pain in the right side of her neck just above her shoulders with radiation to the right temporal region associated with right arm numbness and weakness. The patient stated that she did not seek immediate medical attention. She was brought to [facility] emergency department on 06/12/2024 reporting a 2-day history of the above complaints. NIH score = 2 (secondary to reports of right facial numbness and a V1 through V3 distribution, and right arm and right leg numbness). Point of contact glucose [address] 06/12/2024 negative Drug allergies: Relpax which resulted in anaphylaxis Norpace which resulted in anaphylaxis Current medications: Doxycycline 100 mg p.o. twice daily Colace 100 mg p.o. twice daily Neurontin 600 mg p.o. 3 times daily Hydromorphone 1 mg p.o. every 8 hours as needed for pain Ibuprofen 800 mg p.o. every 8 hours Nortriptyline 50 mg p.o. nightly Zanaflex 4 mg to take as directed Past medical history: Chronic history of headaches that are constant involving the right side of her neck up to the right temporal region Opiate dependence Exposure to COVID-19 virus Elevated transaminase MRSA of the spinal cord requiring laminectomy January 2023 Habits: Patient reports that she smokes 3/4 pack a day. She also states she vapes nicotine. She denies other drug use Social history: The patient reports she lives alone Family history: Negative for strokes Review of Systems 2 General: Reports: 10 or more systems reviewed and unremarkable except in HPI and below Medications/Allergies Home Medications Medication Instructions Recorded Confirmed Last Taken Type docusate sodium 100 mg capsule 100 mg PO DAILY 01/30/23 01/30/23 Unknown History doxycycline hyclate 100 mg capsule 100 mg PO BID 01/30/23 01/30/23 Unknown History hydromorphone 2 mg tablet 1 mg PO Q8H PRN pain 01/30/23 01/30/23 Unknown History ibuprofen 800 mg tablet 800 mg PO Q8H 01/30/23 01/30/23 Unknown History nortriptyline 50 mg capsule 50 mg PO DAILY #30 caps 01/30/23 01/30/23 Unknown Rx gabapentin 600 mg tablet 600 mg PO TID #90 tabs 02/27/23 Unknown Rx tizanidine 4 mg tablet See Rx Instructions .Route 01/06/24 Unknown Rx .COMPLEX #30 tabs Allergies Allergy/AdvReac Type Severity Reaction Status Date / Time eletriptan [From Relpax] Allergy Severe ALGY-Anaphy Verified 01/30/23 10:39 laxis disopyramide [From Norpace] Allergy ALGY-Anaphy Verified 01/30/23 10:39 laxis Current Medications Generic Name Dose Route Start Last Admin Trade Name Freq PRN Reason Stop Dose Admin Valproic Acid 500 mg/ Sodium 55 mls @ 55 mls/hr 06/12/24 09:42 06/12/24 10:25 Chloride IV 06/12/24 10:41 55 mls/hr ONCE ONE Administration PFSH Acute 2 PFSH: Social History Smoking and tobacco/nicotine status: current every day tobacco/nicotine user cigarettes Alcohol intake: never Substance/Drug Use: current Substance/Drug use frequency: few times a week Vitals/I&O/Wt Last Vital Signs Temp 98.2 F 06/12/24 09:31 Pulse 80 06/12/24 10:25 Resp 18 06/12/24 09:31 BP 112/71 06/12/24 10:25 Pulse Ox 98 06/12/24 10:25 O2 Del Method Room Air 06/12/24 10:25 Weight last 48 hrs Weight 115 lb Physical Exam 2 Narrative: NIH score = 2 (secondary to reports of right facial numbness and a V1 through V3 distribution, and right arm and right leg numbness). Point of contact glucose [address] 06/12/2024 negative Blood pressure 112/71 heart rate 80 respirations 18 temperature 98.2 ?F O2 saturation 98% on room air The patient is alert and oriented x 3. Patient appeared anxious. Head atraumatic. Neck supple. Cranial nerves II through XII revealed patient reporting numbness over the right face and a V1 through V3 distribution as well as numbness in the right arm and right leg for 2 days. Pupils 3 to 4 mm round reactive to light and accommodation. Extraocular movements intact. There were no nystagmus. Visual encarnacion full via confrontation. Motor testing 5/5 bilaterally. There was no drift. Sensory examination patient reported decreased sensation in the right arm and right leg and right face and a V1 through V3 distribution. Plantar responses flexor bilaterally. There was no cyanosis or edema. Throat clear. Lungs clear. Heart regular rhythm and rate. Extremities were negative for cyanosis. Data 06/12/24 09:46 06/12/24 09:46 A&P Assessment and plan (1) Thunderclap headache: Impression: 1. The patient was evaluated by neurology for history of chronic constant right- sided headaches from her neck region just above her shoulders to incorporate the right temporal region of her head and with reports of the worst headache of her life starting 2 days ago on 06/10/2024 and right-sided numbness for 2 days 2. History of opioid withdrawal/opiate dependence 3. Nicotine dependence Plan: 1. Recommend obtaining CT angiogram of the head and neck to assess for aneurysm since patient reports she has been experiencing the worst headache of her life for the past 2 days and has history of chronic right-sided headache 2. Recommend referral to pain clinic Consult Attestations 2 Medical Necessity Statement: The patient was evaluated by neurology for severe headache, worst of her life for the past 2 days associated with right sided numbness (face arm and leg) for 2 days in a patient with a history of chronic constant right sided headaches. Coding Level of Care Code 73780 Diagnoses Thunderclap headache G44.53
[2024-06-12 10:27] LABS: Add Urine Culture? Yes
[2024-06-12 10:28] LABS: Amphetamines Screen Urine Positive (Negative); Barbiturates Screen Urine Negative (Negative); Benzodiazepines Screen Urine Negative (Negative); Cocaine Screen Urine Negative (Negative); Opiate Screen Urine Negative (Negative); PCP Screen Urine Negative (Negative); THC Screen Urine Negative (Negative)
[2024-06-12] MEDS: ketorolac 30 mg/mL INJ IVP (11:32)
[2024-06-12] MEDS: prochlorperazine 10 mg/2 mL Inj IVP (11:34)
[2024-06-12] MEDS: dexamethasone 10 mg/mL INJ IM ×2 (11:38)
[2024-06-12 11:41] VITALS: BP 111/72; PULSE 70; O2SAT 98
[2024-06-12 12:53] VITALS: BP 107/68; PULSE 78; O2SAT 95
--- NOTE | 2024-06-15 07:24 | DCPLANNER ---
messaged ortho for er f/u
== END 2024-06-12 12:54 | disposition home or self-care (01) ==
PROVIDERS: Emergency Provider Family Medicine; PCP Family Medicine
DX: G44.53 Primary thunderclap headache (principal); G43.409 Hemiplegic migraine, not intractable, without status migrainosus; M96.1 Postlaminectomy syndrome, not elsewhere classified; F17.210 Nicotine dependence, cigarettes, uncomplicated
CPT/HCPCS: 36416; 70450; 70496; 70498; 80053; 80306; 81001; 82962; 85025; 85610; 85730; 87077; 87086; 87186; 93005; 96374; 96375; 99285; J0780; J1100; J1885

== ENCOUNTER 2024-07-02 14:55 | Emergency (ER) | payer MEDICAID, SELFPAY ==
[2024-07-02 14:55] VITALS: BP 149/92; PULSE 107; RESP 16; TEMP 36.7; O2SAT 97; BMI 24.0
--- NOTE | 2024-07-02 15:13 | XRR_ITS ---
PROCEDURE INFORMATION: Exam: XR Cervical Spine Exam date and time: 07/02/2024 3:33 PM Age: 49 years old Clinical indication: Neck pain; Prior surgery; Surgery date: 6+ months; Surgery type: C-spine 5-7; Additional info: Neck trauma TECHNIQUE: Imaging protocol: Radiologic exam of the cervical spine. Views: 2 or 3 views. COMPARISON: CT angio headneck* [id number] 06/12/2024 10:08 AM FINDINGS: Bones/joints: Chronic anterior wedging of the C6 vertebral body with evidence of laminectomies at the C4 through C7 levels. This is causing cervical kyphosis. Recommend MR for better evaluation and spine surgery consult as indicated. Soft tissues: Unremarkable. Lungs: Visualized lung apices are unremarkable. XR/XR cervical spine 3V* [id number] IMPRESSION: 1. No acute findings. 2. Stable chronic anterior wedging of the C6 vertebral body, recommend MRI and spine surgery evaluation for evaluation of the spinal cord.
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
[2024-07-02] MEDS: ketorolac 60 mg/2 mL INJ IM (15:41)
[2024-07-02] MEDS: orphenadrine 30 mg/mL Inj 2 mL 60 MG IM (15:41)
[2024-07-02 16:46] VITALS: BP 102/79; PULSE 91; RESP 16; O2SAT 96
== END 2024-07-02 16:48 | disposition home or self-care (01) ==
PROVIDERS: Emergency Provider Physician Assistant
DX: S16.1XXA Strain of muscle, fascia and tendon at neck level, initial encounter (principal); F17.210 Nicotine dependence, cigarettes, uncomplicated; W50.0XXA Accidental hit or strike by another person, initial encounter
CPT/HCPCS: 72040; 96372; 99284; J1885; J2360

== ENCOUNTER → 2024-07-23 14:32 | Outpatient (BNVA) | payer OTHER, SELFPAY | PROVIDERS: Visit Provider Orthopaedic Surgery | DX: M54.2 Cervicalgia (principal); M54.50 Low back pain, unspecified | CPT/HCPCS: 72050; 72110 ==

== ENCOUNTER 2024-08-10 12:05 | Outpatient (CLI) | payer MEDICAID, SELFPAY ==
--- NOTE | 2024-08-10 12:15 | MR_ITS ---
WS: [id number] MRI CERVICAL SPINE NONCONTRAST TECHNIQUE: Sagittal T1, T2 and STIR imaging. Axial T2, gradient, and fiesta imaging. CLINICAL INFORMATION: cervical pain COMPARISON: CT neck 12/25/2022 FINDINGS: Straightening with reversal normal cervical lordosis. Advanced degenerative narrowing C6-7. Degenerat noelle end plate type changes C5-C7 with disc bulging C5-C6 with a small annular fissure. Decompressive laminectomies at C5-C6 and C6-C7. Myelomalacia with atrophy of the cervical cord at this level. Sligh t anterolisthesis C4 on C5. C2-C3: Mild facet arthropathy. Spinal canal and foramen are patent. C3-C4: Moderate facet arthropathy with periarticular edema. RIGHT facet synovitis. Mild RIGHT greater than LEFT bony foraminal narrowing. Spinal canal is patent. C4-C5: Decompressive laminectomies. Moderate RIGHT facet arthropathy. Spinal canal and foramen are pa tent. Slight anterolisthesis C4 on C5. C5-C6: Mild disc bulging. Tiny central protrusion. Mild central canal stenosis with chronic flattenin g of the cervical cord. Associated myelomalacia. Moderate facet arthropathy. Foramen are patent. C6-C7: Slight retrolisthesis. LEFT eccentric disc osteophyte complex with moderate to severe LEFT for aminal narrowing. RIGHT foramen is patent. Spinal canal is patent. C7-T1: Mild disc bulge with endplate ridging. Mild bilateral foraminal narrowing. Moderate facet arth ropathy. Spinal canal is patent. Mild facet arthropathy. Visualized brain stem structures: Normal. Prevertebral soft tissues: Normal. MR/MR cervical spin wo con* [id number] IMPRESSION: 1. Straightening with reversal normal cervical lordosis. 2. Prior cervical decompression C4-C6 with slight indentation and chronic flat tening of the cervical cord with myelomalacia. 3. Mild disc bulging C5-C6 with a tiny central disc osteophyte protrusion. 4. Severe LEFT C6-7 bony foraminal narrowing. 5. Mild bilateral C7-T1 bony foraminal narrowing. 6. Advanced RIGHT C3-4 facet arthropathy with synovitis and a small amount of periarticular edema.
== END 2024-08-10 12:06 | disposition home or self-care (01) ==
LOC: RAD 12:06
PROVIDERS: Visit Provider Orthopaedic Surgery
DX: M48.02 Spinal stenosis, cervical region (principal); R93.7 Abnormal findings on diagnostic imaging of other parts of musculoskeletal system; G95.89 Other specified diseases of spinal cord; M50.322 Other cervical disc degeneration at C5-C6 level; M47.892 Other spondylosis, cervical region; M65.88 Other synovitis and tenosynovitis, other site; Z98.890 Other specified postprocedural states; M48.8X2 Other specified spondylopathies, cervical region; M25.78 Osteophyte, vertebrae; M50.33 Other cervical disc degeneration, cervicothoracic region; M48.03 Spinal stenosis, cervicothoracic region; M47.893 Other spondylosis, cervicothoracic region
CPT/HCPCS: 72141

== ENCOUNTER → 2024-08-11 09:34 | Outpatient (BNVA) | payer MEDICAID, SELFPAY | PROVIDERS: Visit Provider Orthopaedic Surgery | DX: M47.12 Other spondylosis with myelopathy, cervical region (principal) | CPT/HCPCS: 80053; 81001; 85025 ==

== ENCOUNTER → 2024-08-18 11:48 | Outpatient (BNVA) | payer OTHER, MEDICAID, SELFPAY | PROVIDERS: Visit Provider Nurse Practitioner Psychiatric/Mental Health | DX: Z79.899 Other long term (current) drug therapy (principal); F31.63 Bipolar disorder, current episode mixed, severe, without psychotic features; F15.20 Other stimulant dependence, uncomplicated; F12.20 Cannabis dependence, uncomplicated; F17.210 Nicotine dependence, cigarettes, uncomplicated; F17.290 Nicotine dependence, other tobacco product, uncomplicated; F43.12 Post-traumatic stress disorder, chronic | CPT/HCPCS: 80061; 80307; 83036 ==

== ENCOUNTER → 2024-09-01 12:06 | Outpatient (BNVA) | payer OTHER, MEDICAID, SELFPAY | PROVIDERS: Visit Provider Family Medicine | DX: Z01.818 Encounter for other preprocedural examination (principal) | CPT/HCPCS: 81003; 87086 ==

== ENCOUNTER 2024-09-02 14:42 | Inpatient (IN) | payer OTHER, MEDICAID, SELFPAY ==
[2024-09-02] VITALS (33 sets, daily range): BP systolic 93–148; BP diastolic 54–108; PULSE 61–98; RESP 12–24; TEMP 36.1–37.3; O2SAT 91–99
[2024-09-02] MEDS: sodium chloride 0.9% 1,000 ML 30 ML IV (06:13)
--- NOTE | 2024-09-02 06:25 | W.PM.OPSUD ---
Surgery/Procedure H&P Update DATE OF PROCEDURE: September 02, 2024 DATE H&P PERFORMED: 09/01/24 H&P UPDATE INFORMATION: I have reviewed H&P completed within last 30 days, I have examined patient prior to procedure and No changes to prior documentation PREOP DIAGNOSIS: Cervical stenosis with myelopathy PLANNED PROCEDURE: Operation Date: 09/02/24 07:00 Proposed Procedures p Anterior Cervical Discectomy & Fusion ACDF w/ Anterior Interbody Fusion w/ Cage w/ Instrumentation w/ Allograft w/ Navigation(Not Applicable) - Rikki Lo DO
--- NOTE | 2024-09-02 06:47 | P.ANESASSM_ITS ---
Pre-Anesthetic Assessment Height/Weight: Height 1.63 m Weight 64.58 kg Temp Pulse Resp Pulse Ox O2 Del Method 97.8 F 85 20 H 99 Room Air 09/02/24 06:03 09/02/24 06:03 09/02/24 06:03 09/02/24 06:03 09/02/24 06:03 Preop Diagnosis: Cervical stenosis with myelopathy Operation Date: 09/02/24 07:00 Proposed Procedures p Anterior Cervical Discectomy & Fusion ACDF w/ Anterior Interbody Fusion w/ Cage w/ Instrumentation w/ Allograft w/ Navigation(Not Applicable) - Rikki Lo, DO Familial anesthetic complications: None Was Beta Amira taken within 24 hours: N/A Was Clonidine taken within 24 hours: N/A Last intake: Intake Last Liquid Date 09/01/24 Last Liquid Time 23:35 Last Solid Date 09/01/24 Last Solid Time 23:35 Social No alcohol and No tobacco Vaping, Marijuana, last meth use a couple of months ago Exam alert, oriented x 3, clear to auscultation bilaterally and regular rate & rhythm Airway Mallampati: Class II Dentition: partials and other (poor dentition) Musc/skel Osteoarthritis/DJD Neuropsych Bipolar Anesthetic Plan ASA status: 2 Anesthesia: General Risk of > 500 ml blood loss (7ml/kg in children): No Medications/Allergies Home Medications ?Medication ?Instructions ?Recorded ?Confirmed ?Last Taken ?Type gabapentin 300 mg capsule 300 mg PO TID 30 days #90 ca ps 07/23/24 09/02/24 09/02/24 Rx tizanidine 4 mg tablet 4 mg PO Q8H PRN muscle spast icity 07/23/24 09/02/24 09/02/24 Rx 30 days #90 tabs Bone Growth Stimulator #1 ea 08/27/24 09/02/24 Unkn own Rx Allergies Allergy/AdvReac Type Severity Reaction Status Date / Time eletriptan (From Relpax) Allergy Severe ALGY-Anaphy Verified 09/01/24 11:53 laxis disopyramide (From Norpace) Allergy ALGY-Anaphy Verified 09/01/24 11:53 laxis Current Medications Generic Name Dose Route Start Last Admin Trade Name Freq PRN Reason Stop Dose Admin Sodium Chloride 1,000 mls @ 30 mls/hr 09/02/24 05:45 09/02/24 06:13 Sodium Chloride 0.9% IV 09/03/24 05:44 30 mls/hr .Q24H GLENN Administration PFSH Anesthesia Medical History Chronic post-traumatic stress disorder Nicotine dependence due to vaping tobacco product Nicotine dependence, cigarettes, uncomplicated Marijuana dependence Methamphetamine dependence, episodic Bipolar I, most recent episode mixed, severe Psychiatric care Social History Smoking and tobacco/nicotine status: current every day tobacco/nicotine user cigarettes Alcohol intake: never Substance/Drug Use: current Substance/Drug use frequency: few times a week Data Anesthesia Cardiac Studies: No Data to Display
[2024-09-02 07:00] LABS: OR HCG Qualitative Urine Negative (Negative)
[2024-09-02 07:01] LABS: Amphetamines Screen Urine Negative (Negative); Barbiturates Screen Urine Negative (Negative); Benzodiazepines Screen Urine Negative (Negative); Cocaine Screen Urine Negative (Negative); Opiate Screen Urine Negative (Negative); PCP Screen Urine Negative (Negative); THC Screen Urine Positive (Negative)
[2024-09-02] MEDS: ceFAZolin 2,000 mg SDV 2000 MG IVP ×3 (07:06→23:22)
[2024-09-02] MEDS: lidocaine-epi 1% 20 mL INJ 10 ML INJECTION (08:00)
--- NOTE | 2024-09-02 09:59 | PM.OP ---
Operative Report Date of procedure: September 02, 2024 Pre-op diagnosis: Cervical stenosis with myelopathy Kyphotic deformity Post-op diagnosis: same Procedure done: 1. Anterior discectomy C4/5 2. Anterior diskectomy C5/6 3. Anterior discectomy C6/7 4. Anterior discectomy C7/T1 5. Insertion of cage C4/5 6. Corpectomy of C6 vertebral body greater than 50% 7. Insertion of corpectomy cage from C5-C7 8. Insertion of Cage C7/T1 9. Instrumentation with anterior plate from C4-T1 10. Kyphosis correction 11. Use of allograft Surgeon: Rikki Lo DO Estimated blood loss (mL): 100 Procedure: 1. Anterior discectomy C4/5 2. Anterior diskectomy C5/6 3. Anterior discectomy C6/7 4. Anterior discectomy C7/T1 5. Insertion of cage C4/5 6. Corpectomy of C6 vertebral body greater than 50% 7. Insertion of corpectomy cage from C5-C7 8. Insertion of Cage C7/T1 9. Instrumentation with anterior plate from C4-T1 10. Kyphosis correction 11. Use of allograft The patient was taken to the operating room, where he underwent general endotracheal anesthesia without complications. He was then positioned supine on the operating table, and all areas of impingement were well padded. The arms were carefully padded and tucked at his sides. A roll was placed between the shoulder blades.. An x-ray was done to determine the appropriate level for the skin incision. The entire neck was then sterilely prepped and draped in the usual fashion. Neuromonitoring was attached prior to prepping. A transverse skin incision was made and carried down to the platysma muscle. This was then split in line with its fibers. Blunt dissection was carried down medial to the carotid sheath and lateral to the trachea and esophagus until the anterior cervical spine was visualized. A needle was placed into a disc and an x-ray was done to determine its location. The longus colli muscles were then elevated bilaterally with the electrocautery unit. Self-retaining retractors were placed deep to the longus colli muscle. Attention was brought to the C4/5 level that was confirmed on x-ray. A caspar pin was placed into the C4 vertebrae and the C5 vertebrae. The disk space was then distracted. The microscope was then brought in. A radical anterior discectomies were performed at C4/5. This included complete removal of the anterior annulus, nucleus, and posterior annulus. The posterior longitudinal ligament was removed as were the posterior osteophytes. Foraminotomies were then accomplished bilaterally. This was done using a high speed jacqueline, kerrison rongeurs and curretes Once all of this was accomplished, the curved currette was used to check for any residual compression. The central canal was wide open as were the foramen. A high-speed bur was used to remove the cartilaginous endplates above and below the interspace. Bleeding cancellous bone was exposed. The disc space were measured and appropriate size cage were placed sterilely onto the field. Allograft graft was packed into the cages. The cage was then placed and there was good juxtaposition against the bleeding decorticated surfaces and good distraction of each interspace. Attention was brought to the next interspace. The [place] pins were removed. Bone wax was used to prevent any bleeding from occurring at the pin sites. I elected to proceed with doing corpectomy at C6 in order to get a better correction of the kyphosis. Attention was brought to the C5-C7 level that was confirmed on x-ray. A caspar pin was placed into the C5 vertebrae and the C7 vertebrae. The disk space was then distracted. The microscope was then brought in. A radical anterior discectomies were performed at C5-6. This included complete removal of the anterior annulus, nucleus, and posterior annulus. The posterior longitudinal ligament was removed as were the posterior osteophytes. Foraminotomies were then accomplished bilaterally. This was done using a high speed jacqueline, kerrison rongeurs and curretes Once all of this was accomplished, the curved currette was used to check for any residual compression. The central canal was wide open as were the foramen. A high-speed bur was used to remove the cartilaginous endplates above and below the interspace. Bleeding cancellous bone was exposed. Attention was brought to the C6-7 level that was confirmed on x-ray. The microscope was then brought in. A radical anterior discectomies were performed at C6/7. This included complete removal of the anterior annulus, nucleus, and posterior annulus. The posterior longitudinal ligament was removed as were the posterior osteophytes. Foraminotomies were then accomplished bilaterally. This was done using a high speed jacqueline, kerrison rongeurs and curretes Once all of this was accomplished, the curved currette was used to check for any residual compression. The central canal was wide open as were the foramen. A high-speed bur was used to remove the cartilaginous endplates above and below the interspace. Bleeding cancellous bone was exposed. Next the corpectomy of C6 was performed. This was done using high-speed bur. It was done from the disc base of C5-6 down to the disc base of C6-7. Green percent of the vertebral body was removed. This was done already down to the posterior longitudinal ligament. Once the ligament was reached then a curved ring Kerrison were used to remove the remaining ligamentum flavum from the vertebral body of C5 down to the vertebral body of C7. A trial was measured at 17 mm. And a corpectomy cage packed with osteo and bone graft was placed into the space and confirmed under C-arm guidance to be in good location. This was a 17 mm corpectomy cage. Next attention was brought to the C7/T1 level that was confirmed on x-ray. A caspar pin was placed into the C7 vertebrae and the T1 vertebrae. The disk space was then distracted. The microscope was then brought in. A radical anterior discectomies were performed at C7/T1. This included complete removal of the anterior annulus, nucleus, and posterior annulus. The posterior longitudinal ligament was removed as were the posterior osteophytes. Foraminotomies were then accomplished bilaterally. This was done using a high speed jacqueline, kerrison rongeurs and curretes Once all of this was accomplished, the curved currette was used to check for any residual compression. The central canal was wide open as were the foramen. A high-speed bur was used to remove the cartilaginous endplates above and below the interspace. Bleeding cancellous bone was exposed. The disc space were measured and appropriate size cage were placed sterilely onto the field. Allograft graft was packed into the cages. The cage was then placed and there was good juxtaposition against the bleeding decorticated surfaces and good distraction of each interspace. The [place] pins were removed. Bone wax was used to prevent any bleeding from occurring at the pin sites. The appropriate size anterior cervical locking plate was chosen and bent into gentle lordosis. Two screws were then placed into each of the vertebral bodies at C4, C5-C6 was skipped because this was the corpectomy site C7 and T1. There was excellent purchase. A final x-ray was done confirming good position of the hardware and Cages. The locking screws were then applied, also with excellent purchase. Following a final copious irrigation, there was good hemostasis and no dural leaks. The carotid pulse was strong. The wounds were then closed in layers using 2-0 Vicryl suture for the platysma muscle, 2-0 Vicryl suture for the subcutaneous tissue, and 4-0 monocryl suture in a subcuticular skin closure. Glue was placed followed by application of a sterile dressing. The drain was hooked to bulb suction. A soft collar was applied. The patient was then carefully returned to the supine position on his hospital bed where he was reversed and extubated and taken to the recovery room having tolerated the procedure well.
[2024-09-02] MEDS: fentaNYL 50 mcg/mL INJ 2mL IVP ×3 (10:06→13:17)
[2024-09-02] MEDS: HYDROmorphone 1 mg/mL INJ 1 mL 0.25 MG IVP (10:35)
[2024-09-02] MEDS: HYDROmorphone 1 mg/mL INJ 1 mL 0.5 MG IVP (10:48)
[2024-09-02] MEDS: midazolam 1 mg/mL INJ 2 mL IVP (10:57)
[2024-09-02] MEDS: HYDROcodone-acetaminophen 5-325 mg Tablet PO ×3 (12:20→20:10)
--- NOTE | 2024-09-02 13:28 | SUR.EXTENDED ---
Patient yawned and started crying in pain. States she felt like it pulled something in her neck where the surgical dressing in. No blood noted on the dressing, no changes in output of drain from neck. Anesthesia was notified and approved from dose of fentanyl
--- NOTE | 2024-09-02 13:52 | XR_ITS ---
WS: [id number] Cervical spine, C-arm fluoroscopy views, 09/02/2024 Clinical Data: or pic, acdf Comparison: Cervical spine, 07/23/2024. Findings: Dr. Lo performed an anterior cervical disc fusion. XR/XR cervical spine 3V* [id number] Impression: Anterior cervical disc fusion.
--- NOTE | 2024-09-02 14:55 | ANE.PACU2 ---
Inpatient post-anesthesia follow up: Airway intact: Yes Vital signs: Temperature 98.0 F Pulse Rate 92 Respiratory Rate 15 Blood Pressure 124/74 Pulse Oximetry 94 Oxygen Delivery Me thod Room Air Oxygen Flow Rate 1 Fraction of Inspir ed Oxygen Hydration adequate: Yes Nausea and vomiting: No Pain level: 1 Mental status: Baseline
[2024-09-02] MEDS: lactated ringers 1,000 ML 90 ML IV (16:07)
[2024-09-02] MEDS: gabapentin 300 mg Capsule PO ×2 (16:08→20:10)
[2024-09-02] MEDS: docusate sodium 100 mg Capsule PO (18:46)
[2024-09-02] MEDS: tizanidine 4 mg Tablet PO (20:10)
[2024-09-02] MEDS: ketorolac 30 mg/mL INJ IVP (21:07)
[2024-09-02] MEDS: phenol oral Spray 177 mL 3 SPRAY MUCOUS MEM (21:09)
[2024-09-03] VITALS: BP 111/75; PULSE 92; RESP 18; TEMP 37; O2SAT 94
[2024-09-03] MEDS: HYDROcodone-acetaminophen 5-325 mg Tablet PO ×3 (00:10→09:12)
[2024-09-03] MEDS: lactated ringers 1,000 ML 90 ML IV (02:59)
[2024-09-03] MEDS: ketorolac 30 mg/mL INJ IVP (02:59)
[2024-09-03] MEDS: tizanidine 4 mg Tablet PO (04:02)
[2024-09-03 04:06] VITALS: BP 106/63; PULSE 97; RESP 18; TEMP 36.8; O2SAT 95
[2024-09-03] MEDS: ceFAZolin 2,000 mg SDV 2000 MG IVP (06:01)
[2024-09-03 07:32] VITALS: BP 124/74; PULSE 92; RESP 15; TEMP 36.7; O2SAT 94
[2024-09-03] MEDS: docusate sodium 100 mg Capsule PO (09:12)
[2024-09-03] MEDS: gabapentin 300 mg Capsule PO (09:12)
--- NOTE | 2024-09-03 09:58 | PM.DCS ---
Discharge Providers Date of Admission: 09/02/24 14:42 Date of Discharge: September 03, 2024 Attending Provider at Admission: Rikki Lo DO Attending Provider at Discharge: Rikki Lo DO Reason for Visit Reason for Visit: M48.08 Physical Exam Narrative: Patient is doing well states that her ability to raise her right arm is improved she can extend her neck better. This point plan will be to discharge her today. Urinary Catheter Management: Marquez: Cath Placed During This Visit: yes, but has since been removed by the nurse Urinary Catheter Date of Insertion: 09/02/24 Urinary Catheter Time of Insertion: 07:30 Date Urinary Catheter Removed: 09/02/24 Time Urinary Catheter Discontinued: 09:45 Discharge Data Studies Completed and Pending Completed Studies During Hospitalization Category Date Time Status XR cervical spine 3V* [id number] Routine Exams 09/02/24 13:52 Completed Pending at discharge Category Date Time Status C-arm Fluoroscopy 44755 Routine Exams 09/02/24 05:41 Taken Radiology Impressions Cervical Spine X-Ray 09/02/24 13:52 Impression: Anterior cervical disc fusion. Laboratory Results Urine HCG, Qual Negative (Negative) 09/02/24 05:51 Urine Opiates Screen Negative ng/mL (Negative) 09/02/24 06:44 Ur Barbiturates Screen Negative ng/mL (Negative) 09/02/24 06:44 Ur Phencyclidine Scrn Negative ng/mL (Negative) 09/02/24 06:44 Ur Amphetamines Screen Negative ng/mL (Negative) 09/02/24 06:44 U Benzodiazepines Scrn Negative ng/mL (Negative) 09/02/24 06:44 Urine Cocaine Screen Negative ng/mL (Negative) 09/02/24 06:44 U Marijuana (THC) Screen Positive ng/mL (Negative) H 09/02/24 06:44 Blood Type A Negative 09/02/24 07:20 Rho(D) Type Rh negative 09/02/24 07:20 Antibody Screen Negative 09/02/24 07:20 Vitals Last Vital Signs Temp 98.0 F 09/03/24 07:32 Pulse 92 09/03/24 07:32 Resp 15 09/03/24 07:32 BP 124/74 09/03/24 07:32 Pulse Ox 94 09/03/24 07:32 O2 Del Method Room Air 09/03/24 07:32 O2 Flow Rate 1 09/02/24 11:35 Discharge Plan Discharge Patient Disposition: Home Condition: Stable Prescriptions: New hydrocodone-acetaminophen 5-325 mg tablet 1 - 2 tab PO .Q4-6H Qty: 40 0RF Continued gabapentin 300 mg capsule 300 mg PO TID 30 Days Qty: 90 1RF tizanidine 4 mg tablet 4 mg PO Q8H PRN (Reason: muscle spasticity) 30 Days Qty: 90 1RF (DME) Bone Growth Stimulator See Rx Instructions .Route .MEDSUPPLY Qty: 1 0RF Rx Instructions: As directed Discharge Orders: Discharge Order (Routine); Ordered 09/03/24 Ordered By: Rikki Lo Referrals: Rikki Lo, DO [Physician] - Discharge Diet: Advance as tolerated Discharge Activity: Limit activity as instructed Patient Instructions: Acute Wound Care (DC), Post Anesthesia Care Activity Restrictions/Additional Instructions: Thank you for choosing [facility] for your care! The following is a list of instructions, from your provider, to follow upon your discharge to ensure you have the optimal recovery from your recent injury or surgery. Anterior Cervical Discectomy and Fusion: What to Expect at Home Your Recovery Follow-up care is a blackwell part of your treatment and safety. Be sure to make and go to all appointments, and call your doctor if you are having problems. If you do not already have a follow-up appointment made, call office in the next 1-3 days to make follow up appointment for 2 weeks at [phone]. It is also a good idea to know your test results and keep a list of the medicines you take. You can expect your neck to feel stiff or sore after surgery. This should improve in the weeks after surgery. But it may take 4 to 6 months for you to get better completely. You may have trouble sitting or standing in one position for very long and may need pain medicine in the weeks after your surgery. It may take 4 to 6 weeks to get back to your usual activities, but it may depend on what kind of surgery you had. Your throat will feel sore and it may be difficult to swallow for the first 3 days after your surgery. As long as you can get liquids down without difficulty, this should slowly improve, otherwise call our office or seek medical attention if it becomes increasingly difficult to get anything down including liquids. Avoid hot liquids for first 3-5 days. Soothing foods/liquids such as jello, pudding, and luke warm soups are recommended until swallowing improves. Staying elevated will also help, it's advised you keep propped up at while sleeping to help reduce the swelling. You may use an ice pack directly on your incision or around it on the front of your neck, using a cloth to protect your skin; and a heating pad to the back of your neck as needed. Do not use over the counter anti-inflammatory medications (Ibuprofen, Motrin, Aleve, Advil, etc) Taking these meds after having a fusion can delay fusion rates, we recommend you avoid them for the first 3 months after your surgery. Dr. Lo may advise you to work with a physical therapist to strengthen the muscles around your neck and back - this will be discussed at your follow - up appointments. The pain or numbness you were having in your arms before surgery should get better or go away completely. This care sheet gives you a general idea about how long it will take for you to recover. But each person recovers at a different pace. Follow the steps below to get better as quickly as possible. How can you care for yourself at home? Activity ? Rest when you feel tired. Getting enough sleep will help you recover. ? Try to walk each day. Start by walking a little more than you did the day before. Bit by bit, increase the amount you walk. Walking boosts blood flow and helps prevent pneumonia and constipation. Walking may also decrease your muscle soreness after surgery. ? No lifting anything that is more that 5 pounds. This may include heavy grocery bags and milk containers, a heavy briefcase or backpack, cat litter or dog food bags, a child, or a vacuum distributor cleaner. ? Avoid strenuous activities, such as bicycle riding, jogging, weightlifting, or aerobic exercise, until your doctor says it is okay. ? Do not drive until your follow-up visit after your surgery, or until your doctor says it isokay. ? Avoid taking long car trips for 2 to 4 weeks after surgery. Your neck may become tired and painful from sitting too long in one position. ? You will probably need to take 4 to 6 weeks off from work. It depends on the type of work you do and how you feel. ? You may have sex as soon as you feel able, but avoid positions that put stress on your neck or cause pain. Diet ? You can eat your normal diet. If your stomach is upset, try bland, low-fat foods like plain rice, broiled chicken, toast, and yogurt ? Drink plenty of fluids. If you have kidney, heart, or liver disease and have to limit fluids, talk with your doctor before you increase the amount of fluids you drink. ? You may notice that your bowel movements are not regular right after your surgery. This is common. Try to avoid constipation and straining with bowel movements. You may want to take a fiber supplement every day. If you have not had a bowel movement after a couple of days, ask your doctor about taking a mild laxative. Medicines ? Take pain medicines exactly as directed. 1. If Dr. Lo gave you a prescription medicine for pain, take lt as prescribed. 2. Do not take two or more pain medicines at the same time unless the doctor told you to. Many pain medicines have acetaminophen, which is Tylenol. Too much acetaminophen {Tylenol) can be harmful. 3. If you think your pain pill is making you sick to your stomach: 4. Take your pills after meals (unless your doctor has told you not to). 5. Ask your Dr. for a different pain pill. Incisioncare ? Remove your dressing 48hours after your surgery. Ok to shower and get the incision wet. Do not overtly wash your incision. When done, pad dry, leave open to air thereafter. Avoid creams and ointments directly on your incision. ? Your sutures in the incision will dissolve and fall out on their own. ? Keep the area clean and dry. You may cover it with a gauze bandage if it weeps or rubs against clothing; if you choose to do this, change the dressing everyday. Other instructions ? Use a heating pad, hot water bottle, or gentle massage on your back to reduce stiffness. Avoid putting heat on your incision When should you call for help? ? Call 911 anytime you think you may need emergency care. For example, call if: ? You pass out (lose consciousness). ? You have sudden chest pain and shortness of breath, or you cough upblood. ? You cannot swallow. ? You have severe pain in your neck or back. ? Call your DrKristin or seek immediate medical care if: ? You have pain that does not get better after you take pain pills. ? You have loose stitches, or your incision comes open. ? You have blood or fluid draining from the incision. ? You have signs of infection, such as: 1. Increased pain, swelling, warmth, or redness. 2. Red streaks leading from the site. 3. Pus draining from the site. 4. Swollen lymph nodes in your neck or armpits. 5. A fever. ? You have severe pain in your arms. ? You have new or increased weakness or numbness in your arms. ? Watch closely for any changes in your health, and be sure to contact your doctor if: ? You do not have a bowel movement after taking a laxative. Discharge Attestations Time Spent in Discharge Care*: less than 30 min Quality Metrics Clinical Quality Measures [ No reported AMI, CVA or VTE this stay] Coding Level of Care Code Acute Code for Chg Chanda
--- NOTE | 2024-09-03 10:58 | PC.NURSE ---
0930: Dr. Lo gave verbal orders to d/c hemovac and work on getting pt discharged. Hemovac removed from anterior neck. 2x2 and foam tape applied.
[2024-09-03 11:59] VITALS: BP 124/74; PULSE 94; RESP 15; TEMP 36.7; O2SAT 94
== END 2024-09-03 11:30 | disposition home or self-care (01) | DRG 472 ==
LOC: MEDSURG 14:43
PROVIDERS: Anesthesiology; Admitting Provider Orthopaedic Surgery; Visit Provider Orthopaedic Surgery
PROC: 0RB30ZZ Excision of Cervical Vertebral Disc, Open Approach (ICD-10-PCS; CPT 22551; principal; 2024-09-02 07:00)
DX: M48.02 Spinal stenosis, cervical region (principal); G99.2 Myelopathy in diseases classified elsewhere; Z59.01 Sheltered homelessness; F17.290 Nicotine dependence, other tobacco product, uncomplicated; F17.210 Nicotine dependence, cigarettes, uncomplicated; F12.90 Cannabis use, unspecified, uncomplicated; F15.21 Other stimulant dependence, in remission; M19.90 Unspecified osteoarthritis, unspecified site; F31.9 Bipolar disorder, unspecified; F43.12 Post-traumatic stress disorder, chronic; M40.202 Unspecified kyphosis, cervical region
CPT/HCPCS: 36415; 51702; 72040; 76000; 80306; 81025; 86850; 86900; 97161; C1713; C1763; C9359; J0330; J0690; J1100; J1171; J1885; J2250; J2405; J2704; J2710; J3010; J3490; J7030; J7120

== ENCOUNTER → 2024-11-19 10:23 | Outpatient (BNVA) | payer OTHER, MEDICAID, SELFPAY | PROVIDERS: Visit Provider Orthopaedic Surgery | DX: M48.02 Spinal stenosis, cervical region (principal) | CPT/HCPCS: 72040 ==

== ENCOUNTER → 2025-02-18 10:53 | Outpatient (BNVA) | payer OTHER, MEDICAID, SELFPAY ==
[2025-02-09 07:35] VITALS: BP 122/84; BMI 22.4
== END ==
PROVIDERS: Visit Provider Orthopaedic Surgery
DX: M48.02 Spinal stenosis, cervical region (principal); Z98.1 Arthrodesis status
CPT/HCPCS: 72040

== ENCOUNTER → 2025-05-20 10:33 | Outpatient (BNVA) | payer OTHER, BC, MEDICAID, SELFPAY ==
[2025-05-19 12:09] VITALS: BP 122/84; BMI 22.4
== END ==
PROVIDERS: Visit Provider Orthopaedic Surgery
DX: Z47.89 Encounter for other orthopedic aftercare (principal); Z98.1 Arthrodesis status; M54.9 Dorsalgia, unspecified
CPT/HCPCS: 72040

== ENCOUNTER 2025-06-08 17:41 | Emergency (ER) | payer OTHER, BC, MEDICAID, SELFPAY ==
[2025-05-19 12:09] VITALS: BP 122/84; BMI 22.4
[2025-06-08 17:55] VITALS: BP 148/75; PULSE 86; RESP 16; TEMP 36.8; O2SAT 97; BMI 28.6
--- NOTE | 2025-06-08 18:00 | ECG_ITS ---
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 Measurements Intervals Yale Rate: 78 P: 38 NM: 142 QRS: 55 QRSD: 85 T: 65 QT: 363 QTc: 415 Interpretive Statements SINUS RHYTHM POSSIBLE RIGHT VENTRICULAR CONDUCTION DELAY [RSR (QR) IN V1/V2] Compared to ECG 06/12/2024 09:42:39 Sinus arrhythmia no longer present Electronically Signed On 06-09-2025 23:51:58 [employer]CH[employer] by Ai Brown M.D. [email or web address]
--- NOTE | 2025-06-08 19:18 | W.ED.ALLEREA ---
HPI - Allergic Reaction General: Chief complaint: Allergic Reaction Stated complaint: numbness in neck and face, back pain Time Seen by Provider: 06/08/25 19:11 History of Present Illness: HPI narrative: 50-year-old female presents emergency room she has a cervical nerve block earlier today and around noon. She presents at approximately 1730 with complaints of numbness in her face bilaterally. No history of trauma. The injection was in her lower cervical spine. She has not had any fever sweats or chills no headache no swelling in the neck no pain at the injection site. She also has chronic low back pain which is persistent as well today. No weakness in her lower extremities no fecal incontinence or urinary retention. Associated symptoms: Deny abdominal pain Related Data Previous Rx's ?Medication ?Instructions ?Recorded Bone Growth Stimulator #1 ea 08/27/24 divalproex 500 mg tablet,delayed 500 mg PO .7 pm #30 tabs 12/03/24 release olanzapine 10 mg tablet 10 mg PO .morning #30 tabs 04/19/25 celecoxib 200 mg capsule (Celebrex) 200 mg PO BID #60 caps 05/20/25 gabapentin 600 mg tablet 600 mg PO TID #90 tabs 05/25/25 tizanidine 4 mg tablet 8 mg (2 x 4 mg) PO Q8H PRN muscle 05/25/25 spasticity 30 days #180 tabs Allergies Allergy/AdvReac Type Severity Reaction Status Date / Time eletriptan (From Relpax) Allergy Severe ALGY-Anaphy Verified 06/08/25 18:04 laxis wynne Allergy ALGY-Swell Verified 06/08/25 18:04 Lip/Tongue/Throat disopyramide (From Norpace) Allergy ALGY-Anaphy Verified 06/08/25 18:04 laxis Review of Systems Const: Denies: fever(s) or chills Card: Denies: chest pain Resp: Denies: dyspnea GI: Denies: abdominal pain : Denies: dysuria, urinary frequency or urinary urgency Musc: Denies: neck pain or back pain Skin/Breast: Denies: rash PFSH ED PFSH: Medical History Chronic post-traumatic stress disorder Nicotine dependence due to vaping tobacco product Nicotine dependence, cigarettes, uncomplicated Cannabis use disorder, moderate, in early remission L/U August 2024 Methamphetamine use disorder, moderate, in early remission L/U June 2024 Bipolar I, most recent episode mixed, severe Psychiatric care Social History Smoking and tobacco/nicotine status: unknown if used tobacco/nicotine Alcohol intake: never Substance/Drug Use: current Substance/Drug use frequency: few times a week Physical Exam Const: COMMON NORMALS: no acute distress GENERAL APPEARANCE: cooperative and comfortable ORIENTATION/CONSCIOUSNESS: Yes awake, Yes oriented to person, Yes oriented to place and Yes oriented to time HENMT: COMMON NORMALS: normocephalic, atraumatic and hearing grossly normal bilaterally HEAD & SCALP: normocephalic and atraumatic Resp: COMMON NORMALS: normal respiratory effort, No retractions, No use of accessory muscles and clear to auscultation bilaterally AUSCULTATION: clear to auscultation bilaterally Cardio: COMMON NORMALS: regular rate, regular rhythm and No murmurs present (Cardio) RATE: regular rate RHYTHM: regular rhythm GI: COMMON NORMALS: Soft to palpation and No hepatosplenomegaly present AUSCULTATION: Yes normoactive bowel sounds PALPATION: Yes Soft to palpation, No Tenderness to palpation present (GI), No Guarding due to palpation present (GI) and Yes No hepatosplenomegaly present Extremity: COMMON NORMALS: normal to inspection, capillary refill normal, no clubbing, cyanosis or edema, no calf tenderness and no pedal edema Neuro: SENSORIUM/ORIENTATION: Yes oriented to person, Yes oriented to place and Yes oriented to time OTHER: Neurologically intact good facial symmetry no ataxia no weakness of the extremities Skin: COMMON NORMALS: no rashes or lesions noted GENERAL SKIN EXAM: no rashes or lesions noted Course Vital Signs: Vital signs: Vital Signs Temperature 98.3 F 06/08/25 17:55 Pulse Rate 65 06/08/25 20:53 Respiratory Rate 16 06/08/25 17:55 Blood Pressure 149/91 06/08/25 20:53 Pulse Oximetry 96 06/08/25 20:53 Oxygen Delivery Me thod Room Air 06/08/25 17:55 MDM - Allergic Reaction Medical Decision Making Medical decision making Social determinants: None I reviewed the patient's medical record. I reviewed the patient's current home meds. Alternate historians: None Differential diagnosis: Anxiety attack/side effects of medication CVA TIA Lab Review: None Imaging: None Assessment of risk Level of risk: Low Hospitalization considerations: No acute findings on exam or history no indication for hospitalization Reexamination: Improved Assessment and plan: Patient presents emergency room with bilateral facial symptoms that she associates with the lower cervical epidural block. On exam she has no focal neurologic findings. Her reported symptoms are not consistent with TIA or CVA. No sign of localized infection or swelling or tenderness at the site of the injection patient herself thinks she may have had an anxiety attack.Patient given IV Benadryl had significant improvement of symptoms she is feeling much better encouraged her to follow-up with pain clinic. No radiology studies performed this visit Discharge Plan Discharge Patient Disposition: Home Clinical Impression: Anxiety attack Condition: Stable Prescriptions: No Action divalproex 500 mg tablet,delayed release (DR/EC) 500 mg PO .7 pm Qty: 30 3RF Rx Instructions: Take one tablet at 7 pm celecoxib [Celebrex] 200 mg capsule 200 mg PO BID Qty: 60 0RF gabapentin 600 mg tablet 600 mg PO TID Qty: 90 0RF tizanidine 4 mg tablet 8 mg PO Q8H PRN (Reason: muscle spasticity) 30 Days Qty: 180 1RF (DME) Bone Growth Stimulator See Rx Instructions .Route .MEDSUPPLY Qty: 1 0RF Rx Instructions: As directed olanzapine 10 mg tablet 10 mg PO .morning Qty: 30 12RF Rx Instructions: Take one tablet every morning Discharge Orders: Discharge ED (Routine); Ordered 06/08/25 Ordered By: Fredo Mace Discharge Diet: Usual diet Discharge Activity: Increase activity as tolerated Patient Instructions: Food Allergy (ED), Allergies (ED), Blood Transfusion Reactions (ED), Adverse Drug Reaction (ED), Opioid Safety, Pain Management, Patient Portal & Jacqui Instructions Activity Restrictions/Additional Instructions: Thank you for choosing [facility] for your healthcare needs today. It is very important that you follow up as instructed or that you return to the Emergency Department should you have concerns or if your condition changes or worsens in any way. Emergency department visits are focused on emergent conditions, in some cases you may require further evaluation on an outpatient basis. You were seen in the emergency room with facial numbness and tingling. Your exam did not indicate a stroke. Suspect based on your description of symptoms this may be anxiety attack as you had suggested. There was no sign of an allergic reaction. Will discharge you home and have you follow-up with the pain clinic. Case management will help get you referred to a (Please note that included in your discharge packet is information concerning opioid safety and pain management. This information is given to all patients were discharged from the ER regardless of their discharge diagnosis or the medicines they usually take or are prescribed.) Print Language: Georgian Coding Level of Care Code ED Insurance Administrator for Windy Armas
[2025-06-08] MEDS: diphenhydrAMINE 50 mg/mL SDV 1mL 25 MG IVP (19:49)
[2025-06-08 20:53] VITALS: BP 149/91; PULSE 65; O2SAT 96
== END 2025-06-08 20:54 | disposition home or self-care (01) ==
PROVIDERS: Emergency Provider Family Medicine
DX: F41.8 Other specified anxiety disorders (principal)
CPT/HCPCS: 93005; 96374; 99284; J1200